=== PATIENT | female | born 1955 | race Caucasian/White ===

== ENCOUNTER → 2017-04-19 | Outpatient (CLI) | payer OTHER ==
[~2017-04-19] MED LIST: ULTRAM50 MG PO
== END | disposition home or self-care (01) ==
LOC: TOM 09:30
DX: R06.02 Shortness of breath (principal); J43.2 Centrilobular emphysema; J98.11 Atelectasis

== ENCOUNTER 2018-04-02 10:04 | Outpatient (CLI) | payer OTHER | END 2018-04-02 15:15 | disposition home or self-care (01) | LOC: MRI 10:04 | DX: M75.81 Other shoulder lesions, right shoulder (principal) | CPT/HCPCS: 73221 ==

== ENCOUNTER 2019-04-14 10:03 | Outpatient (CLI) | payer OTHER | END 2019-04-14 10:13 | disposition home or self-care (01) | LOC: TOM 10:03 | DX: J43.2 Centrilobular emphysema (principal); J30.1 Allergic rhinitis due to pollen; Z72.0 Tobacco use; R06.02 Shortness of breath ==

== ENCOUNTER 2020-01-12 07:57 | Outpatient (CLI) | payer OTHER | END 2020-01-12 08:21 | disposition HB | LOC: MAMO-SONO 07:57 | PROVIDERS: ATTEND General Practice | DX: N60.01 Solitary cyst of right breast (principal); Z12.31 Encounter for screening mammogram for malignant neoplasm of breast; N64.4 Mastodynia ==

== ENCOUNTER 2020-01-12 09:55 | Outpatient (CLI) | payer OTHER | END 2020-01-12 10:17 | disposition home or self-care (01) | LOC: NUCLEAR 09:55 | PROVIDERS: ATTEND General Practice | DX: M81.0 Age-related osteoporosis without current pathological fracture (principal) ==

== ENCOUNTER 2020-04-30 07:31 | Outpatient (CLI) | payer OTHER | END 2020-04-30 07:39 | disposition home or self-care (01) | LOC: RAD 07:31 | PROVIDERS: ATTEND General Practice | DX: R05 Cough (principal); Z87.891 Personal history of nicotine dependence ==

== ENCOUNTER 2021-12-02 08:20 | Outpatient (CLI) | payer OTHER | END 2021-12-02 08:30 | disposition home or self-care (01) | LOC: RAD 08:20 | PROVIDERS: ATTEND Internal Medicine Rheumatology | DX: M15.0 Primary generalized (osteo)arthritis (principal) ==

== ENCOUNTER 2022-04-13 10:39 | Outpatient (CLI) | payer OTHER | END 2022-04-13 10:52 | disposition home or self-care (01) | LOC: MAMO-SONO 10:39 | PROVIDERS: ATTEND General Practice | DX: Z12.31 Encounter for screening mammogram for malignant neoplasm of breast (principal); N64.4 Mastodynia ==

== ENCOUNTER → 2022-04-13 | Outpatient (CLI) | payer OTHER | END | disposition home or self-care (01) | LOC: NUCLEAR 11:00 | PROVIDERS: ATTEND Internal Medicine Rheumatology | DX: M81.0 Age-related osteoporosis without current pathological fracture (principal) ==

== ENCOUNTER 2022-06-23 09:37 | Outpatient (CLI) | payer OTHER | END 2022-06-23 09:39 | disposition home or self-care (01) | LOC: SONOGRAMA 09:37 | PROVIDERS: ATTEND Internal Medicine Rheumatology | DX: M75.82 Other shoulder lesions, left shoulder (principal) ==

== ENCOUNTER 2024-08-10 07:28 | Emergency (ER) | payer OTHER ==
[~2024-08-10] VITALS: Ht 165.1 cm; Wt 60.8 kg
[2024-08-10 09:18] LABS: BASO % 0.5 % (0.1-1.2); EOS # 0.01 (0.04-0.54); EOS % 0.1 % (0.7-7.0); HEMATOCRIT 43.1 % (34.1-44.9); HEMOGLOBIN 14.4 g/dL (11.2-15.7); LYMPH # 1.47 (1.18-3.74); LYMPH % 13.5 % (19.3-53.1); MEAN CORPUSCULAR HEMOGLOBIN 30.4 pg (25.6-32.2); MONO # 0.67 (0.24-0.82); MONO % 6.2 % (4.7-12.5); NEUT # 8.66 (1.56-6.13); NEUT % 79.4 % (34.0-71.1); PLATELET COUNT 293 K/uL (163-369); RED BLOOD COUNT 4.74 M/uL (3.93-5.22); RED CELL DISTRIBUTION WIDTH 13.9 % (11.6-14.4)
[2024-08-10 09:33] LABS: INFLUENZA A AG NEGATIVE (NEGATIVE); INFLUENZA B AG NEGATIVE (NEGATIVE)
[2024-08-10 09:37] LABS: POTASSIUM 3.97 mEq/L (3.5-5.1)
[2024-08-10 09:46] LABS: ALBUMIN 3.8 gm/dL (3.4-5.0); BILIRUBIN TOTAL 0.71 mg/dL (0.3-1.2); CALCIUM 9.2 mg/dL (8.5-10.1); CREATININE SERUM 0.67 mg/dL (0.55-1.02); GFR 87.27; GLOBULINA 3.4 G/DL (2.4-3.5); TOTAL PROTEIN 7.2 gm/dL (6.4-8.2)
[2024-08-10 10:13] LABS: PH,URINE 6.5 (5.0-8.0); URINE APPEARANCE Clear; URINE BILIRRUBIN Negative (NEGATIVE); URINE BLOOD Negative; URINE COLOR Yellow; URINE GLUCOSE Negative (NEGATIVE); URINE KETONE 15 (NEGATIVE); URINE LEUKOCYTE Small; URINE NITRATE Negative; URINE PROTEIN Negative (NEGATIVE); URINE UROBILINOGEN 0.2 E.U./dl
[2024-08-10 10:16] LABS: URINE BACTERIA 147.9 uL (0.0-1933); URINE EPITHELIAL CELLS 5.5 uL (0.0-38.8); URINE RBC 2.2 uL (0.0-20.8); URINE WBC 21.3 uL (0.0-23.2)
[2024-08-10 10:18] LABS: URINE CAST 0.14 uL (0.0-1.40)
[2024-08-10 10:21] LABS: COVID-19 AG NEGATIVE (NEGATIVE)
[2024-08-10] MEDS ORDERED: DRAMAMINE25 M1 PO (11:14)
== END 2024-08-10 11:20 | disposition home or self-care (01) ==
LOC: ER 07:28
PROVIDERS: General Practice
DX: R07.9 Chest pain, unspecified (principal); M79.7 Fibromyalgia; Z91.013 Allergy to seafood; Z88.0 Allergy status to penicillin; Z91.041 Radiographic dye allergy status; Z20.822 Contact with and (suspected) exposure to COVID-19

== ENCOUNTER 2024-08-16 07:37 | Emergency (ER) | payer OTHER ==
[~2024-08-16] VITALS: Ht 165.1 cm; Wt 56.7 kg
[~2024-08-16 07:37] MED LIST changes: +DRAMAMINE25 M1 PO
[2024-08-16] MEDS ORDERED: METHYLPREDNISOLONE SOD SUCC 40 MG VIAL IV ONE (09:00)
[2024-08-16 09:34] LABS: URINE APPEARANCE Clear; URINE BILIRRUBIN Negative (NEGATIVE); URINE BLOOD Large; URINE COLOR Yellow; URINE GLUCOSE Negative (NEGATIVE); URINE KETONE Trace (NEGATIVE); URINE LEUKOCYTE Trace; URINE NITRATE Negative; URINE PROTEIN Negative (NEGATIVE); URINE UROBILINOGEN 0.2 E.U./dl
[2024-08-16 09:38] LABS: URINE BACTERIA 70.7 uL (0.0-1933); URINE EPITHELIAL CELLS 2.6 uL (0.0-38.8); URINE RBC 72.8 uL (0.0-20.8); URINE WBC 16.3 uL (0.0-23.2)
[2024-08-16] MEDS ORDERED: DIPHENHYDRAMINE HCL 50 MG/ML VIAL 1ML IV ONE (09:45)
[2024-08-16 10:05] LABS: URINE CAST 0.00 uL (0.0-1.40)
[2024-08-16 10:11] LABS: BASO % 0.5 % (0.1-1.2); EOS # 0.03 (0.04-0.54); EOS % 0.3 % (0.7-7.0); LYMPH # 1.14 (1.18-3.74); LYMPH % 12.1 % (19.3-53.1); MEAN PLATELET VOLUME 10.40 fl (9.4-12.4); MONO # 0.56 (0.24-0.82); MONO % 5.9 % (4.7-12.5); NEUT # 7.64 (1.56-6.13); NEUT % 81.0 % (34.0-71.1); RED CELL DISTRIBUTION WIDTH 14.0 % (11.6-14.4)
[2024-08-16 10:27] LABS: ALT/SGPT 17.0 U/L (12-78); AST/SGOT 15.0 U/L (15-37); BILIRUBIN TOTAL 0.62 mg/dL (0.3-1.2); BILIRUBIN,CONJUGATED 0.14 mg/dL (0.0-0.2); BUN CREA RATIO 15.0 (7.0-25.0); CREATININE SERUM 0.62 mg/dL (0.55-1.02); GFR 95.44; GLOBULINA 3.0 G/DL (2.4-3.5); GLUCOSE FASTING 95.0 mg/dL (65-100); OSMOLALITY SERUM 278.0 MOSM/KG (275-295)
== END 2024-08-16 17:50 | disposition home or self-care (01) ==
LOC: ER 07:37
PROVIDERS: Emergency Medicine
DX: D41.4 Neoplasm of uncertain behavior of bladder (principal); N20.0 Calculus of kidney; K57.30 Diverticulosis of large intestine without perforation or abscess without bleeding; Z88.8 Allergy status to other drugs, medicaments and biological substances
CPT/HCPCS: 36415; 70450; 74177; 96365; 99284; J1200; Q9965